=== PATIENT | female | born 1970 | race Caucasian/White ===

== ENCOUNTER 2016-08-12 21:52 | Emergency (ER) | payer BC, OTHER ==
[2016-08-13] MEDS ORDERED: ASPIRIN 81 MG CHEW TAB ONE (01:57)
[2016-08-13] MEDS ORDERED: KETOROLAC 30 MG/ML VIAL ONE (01:57)
== END 2016-08-13 05:50 | disposition home or self-care (01) ==
LOC: ER 21:52
DX: R07.2 Precordial pain (principal); I10 Essential (primary) hypertension; Z79.899 Other long term (current) drug therapy; Z87.891 Personal history of nicotine dependence
CPT/HCPCS: 36415; 71010; 80053; 82550; 83735; 84484; 85025; 85610; 85730; 93005; 96374